=== PATIENT | male | born 1960 | race Caucasian/White ===

== ENCOUNTER 2017-06-06 07:48 | Emergency (ER) | payer BC ==
[~2017-06-06] VITALS: Ht 175.3 cm; Wt 78.5 kg
[2017-06-06] MEDS ORDERED: VENTOLIN HFA 1818 GM INH (07:55)
[2017-06-06] MEDS ORDERED: ACIPHEX 20 MG T20 MG PO (07:55)
[2017-06-06 08:29] LABS: HEMATOCRIT 46.2 % (42.0-52.0); HEMOGLOBIN 15.7 gm/dL (14.0-18.0); MCH 30.4 pg (26.0-34.0); MCHC 33.9 g/dL (28.0-37.0); MCV 89.7 fL (80.0-100.0); MPV 9.2 fl. (7.2-11.1); NUCLEATED RBCS 0 /100WBC; PLATELET COUNT* 188 thou/uL (150-400); RBC 5.16 mil/uL (4.50-6.00); RDW-CV 13.3 % (10.5-14.5); WBC 9.5 thou/uL (4.0-11.0)
[2017-06-06 08:34] LABS: CALCIUM 8.3 mg/dL (8.5-10.1); CREATININE 1.2 mg/dL (0.6-1.3); POTASSIUM 4.4 mmol/L (3.5-5.1)
[2017-06-06 08:39] LABS: ALBUMIN 3.2 g/dL (3.4-5.0); TOTAL BILIRUBIN 1.3 mg/dL (<0.1-1.0); TOTAL PROTEIN 7.1 g/dL (6.4-8.2)
[2017-06-06 09:04] LABS: ABSOLUTE EOSINOPHILS 0.1 thou/uL (0.0-0.7); ABSOLUTE LYMPHOCYTES 0.1 thou/uL (0.8-5.3); ABSOLUTE MONOCYTES 0.4 thou/uL (0.0-1.2); ABSOLUTE NEUTROPHILS 8.9 thou/uL (1.6-8.1); METAMYELOCYTES 1 %; PLATELET ESTIMATE ADEQUATE
[2017-06-06 09:06] LABS: URINE COLOR DARK YELLOW
[2017-06-06 09:07] LABS: URINE BILIRUBIN NEGATIVE (Negative); URINE BLOOD NEGATIVE (Negative); URINE CLARITY CLEAR; URINE GLUCOSE-RANDOM NEGATIVE (Negative); URINE KETONES TRACE (Negative); URINE LEUKOCYTES-REFLEX NEGATIVE (Negative); URINE NITRITE-REFLEX NEGATIVE (Negative); URINE PROTEIN NEGATIVE (Negative); URINE SPECIFIC GRAVITY >= 1.030 (1.005-1.030); URINE UROBILINOGEN 0.2 E.U./dl (0.2-1.0)
[2017-06-06 10:45] VITALS: BP 110/67
--- NOTE | 2017-06-06 12:53 | EKG ---
[place] [address] ELECTROCARDIOGRAM REPORT Name: BETHANY AGUERO Room: [facility]#: [id number] Admission: 06/06/17 Attend Phys: Discharge: 06/06/17 Date of : 62 Report #: [id number] THIS REPORT FOR: //name// [facility] ED Test Date: 2017-06-06 Test Time: 07:55:16 Pat Name: BETHANY AGUERO Department: Room: Gender: M Financial Assistance Specialist: Cameron SEE : 1960 Requested By: Obdulia Kasper Order Number: [id number] MD: Satya Acuña Measurements Intervals [place] Rate: 139 P: 21 LA: 122 QRS: 124 QRSD: 95 T: 5 QT: 290 QTc: 441 Interpretive Statements Sinus tachycardia Right axis deviation Abnormal R-wave progression, late transition No previous ECG available for comparison Electronically Signed On 06-06-2017 12:53:32 STUDIO OPERATION ENGINEER by Satya Acuña [email or web address] <ELECTRONICALLY SIGNED> By: Satya Acuña MD, [facility] 06/06/17 [id number] Satya Acuña MD, FACC /EPI
== END 2017-06-06 10:46 | disposition home or self-care (01) ==
LOC: M.ERS 07:48
PROVIDERS: Personal Emergency Response Attendant
DX: K52.9 Noninfective gastroenteritis and colitis, unspecified (principal); E86.0 Dehydration; Z90.49 Acquired absence of other specified parts of digestive tract; Z88.0 Allergy status to penicillin